=== PATIENT | female | born 2000 ===

== ENCOUNTER 2020-09-11 18:27 | Inpatient (IN) | payer BC ==
[2020-09-11] MEDS ORDERED: Tranexamic Acid 1,000 MG in Sodium Chloride 0.9% 100 ML IV PRN (21:12)
[2020-09-11] MEDS ORDERED: Nalbuphine 10 MG/1 ML Vial IVPUSH PRN (21:12)
[2020-09-11] MEDS ORDERED: Sodium Chloride 0.9% 2.5 ML Syringe FLUSH PRN (21:12)
[2020-09-11] MEDS ORDERED: Carboprost Tromethamine 250 MCG/1 ML Amp IM PRN (21:12)
[2020-09-11] MEDS ORDERED: Sodium Chloride 0.9% 10 ML Syringe FLUSH PRN (21:12)
[2020-09-11] MEDS ORDERED: Water For Irrigation,Sterile 1,000 ML Container IRR PRN (21:12)
[2020-09-11] MEDS ORDERED: Lidocaine 1% 50 ML MDV INJECT PRN (21:12)
[2020-09-11] MEDS ORDERED: Misoprostol 200 MCG Tab PO PRN (21:12)
[2020-09-11] MEDS ORDERED: Methylergonovine 0.2 MG/1 ML Amp IM PRN (21:12)
[2020-09-11] MEDS ORDERED: Sodium Chloride 0.9% 10 ML SDV IV PRN (21:12)
[2020-09-11] MEDS ORDERED: Oxytocin/0.9 % Sodium Chloride 30 UNIT/500 ML BAG IV SCH ×2 (21:15→21:30)
[2020-09-11] MEDS ORDERED: Terbutaline 1 MG/ML SDV SUBCUT PRN (21:17)
[2020-09-11] MEDS ORDERED: Misoprostol 50 MCG (1/2 of 100 MCG) Tab PO ONE (21:21)
[2020-09-11 22:17] LABS: BLOOD UREA NITROGEN,BUN 10 mg/dL (7.0-18.0); CARBON DIOXIDE,CO2 20.8 mmol/L (21.0-32.0); CHLORIDE,CL 104 mmol/L (98-107); GLUCOSE RANDOM 72 mg/dL (74-106); POTASSIUM,K 3.9 mmol/L (3.5-5.1); SODIUM,NA 137 mmol/L (136-145)
[2020-09-12] MEDS: Butorphanol 1 MG/ML SDV IVPUSH PRN ×2 (00:16→02:33)
[2020-09-12] MEDS: Lactated Ringers 1,000 ML IV SCH ×4 (04:22→14:17)
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
[2020-09-12] MEDS ORDERED: fentaNYL 100 MCG/2 ML SDV ONE ×2 (06:32→15:10)
[2020-09-12] MEDS ORDERED: Ropivacaine HCl/PF 100 ML ONE ×2 (06:32→15:10)
--- NOTE | 2020-09-12 06:58 | PCM.SN.2 ---
- Free Text/Narrative Note: Anesthesia time [id number] VIVIANE procedure note 0610- Bedside with patient and S.O. Discussed risks, benefits, alternatives, and procedure for epidural. All questions answered and concerns addressed. H & P completed, labs reviewed. 0615- Consent signed with RN witness. 0622-Sitting position. ASA monitors on. See RN EMR charting for VS throughout. Time-out completed. 0623- Hat for provider and pt, sterile gloves, Sterile prep. with chlorhexidine, sterile plastic drape. 0625- Lido 1% for localization 0626- First attempt successful at L 3-4 level, [place] with saline at 7 cm. No paresthesias. Catheter threaded without resistance to 11cm. 0626- Negative to aspiration for both heme and CSF. Negative test dose (3ml 1. 5%lido with 1:200,000 epi.). 0643- Remains negative to aspiration. Clinician bolus of remaining 2ml 1.5% lido with epi, and 6ml 0.2% ropiv. c/ 2 mcg/ml fentanyl. Epidural infusion started (0.2% ropivicaine c/ 2 mcg/ml fentanyl) at 8ml/hr with DATABASE ADMIN option of 4ml every 10 min with an hourly max. of 36ml. Pt educated regarding DATABASE ADMIN use. 0658- pt reassessed. VSS. T9 level achieved. Pt reports satisfactory pain control.
--- NOTE | 2020-09-12 15:27 | PCM.PRNOTE ---
- Free Text/Narrative Note: Anes Note Epidural infusion completed. A new bag of 100 cc 0.2% ropivicaine wit 1 mcg cc fentanyl was placed. Rate is 8 cc hr with 6 cc q 20 min prn bolus. Patient reports excellent analgesia. Time with patient [id number] Lusi Vences CRNA
[2020-09-12] MEDS ORDERED: Acetaminophen 500 MG Tab PO PRN ×2 (16:50)
[2020-09-12] MEDS ORDERED: Ibuprofen 800 MG Tab PO PRN (16:50)
[2020-09-12] MEDS ORDERED: Docusate Sodium 100 MG Cap PO PRN (16:50)
[2020-09-12] MEDS ORDERED: Benzocaine/Menthol 20%-0.5% Spray 78 GM Cannister TOP PRN (16:50)
[2020-09-12] MEDS ORDERED: Witch Hazel Medicated Pads 40/Jar TOP PRN (16:50)
[2020-09-12] MEDS ORDERED: Bisacodyl 10 MG Supp RECTAL PRN (16:50)
[2020-09-12] MEDS ORDERED: oxyCODONE 5 MG Tab PO PRN (16:50)
[2020-09-12] MEDS ORDERED: Ibuprofen 400 MG Tab PO PRN (16:50)
[2020-09-12] MEDS ORDERED: Lanolin 100% Cream 7 GM Tube TOP PRN (16:50)
--- NOTE | 2020-09-13 07:05 | PCM48HPAN ---
Post Anesthesia Note - EVALUATION WITHIN 48HRS OF ANESTHETIC Vital Signs in Normal Range: Yes Patient Participated in Evaluation: Yes Respiratory Function Stable: Yes Airway Patent: Yes Cardiovascular Function Stable: Yes Hydration Status Stable: Yes Pain Control Satisfactory: Yes Nausea and Vomiting Control Satisfactory: Yes Mental Status Recovered: Yes Vital Signs: Last Vital Signs Temp 36.1 C 09/12/20 21:00 Pulse 79 09/12/20 21:00 Resp 19 09/12/20 21:00 BP 138/86 09/12/20 21:00 Pulse Ox 97 09/12/20 21:00
--- NOTE | 2020-09-13 08:46 | PCM.PNPP ---
- General Info Date of Service: 09/13/20 Functional Status: Reports: Pain Controlled, Tolerating Diet, Ambulating, Urinating - Review of Systems General: Reports: No Symptoms HEENT: Reports: No Symptoms Pulmonary: Reports: No Symptoms Cardiovascular: Reports: No Symptoms Gastrointestinal: Reports: No Symptoms Genitourinary: Reports: No Symptoms Musculoskeletal: Reports: No Symptoms Skin: Reports: No Symptoms Neurological: Reports: No Symptoms Psychiatric: Reports: No Symptoms - Patient Data Vital Signs - Most Recent: Last Vital Signs Temp 35.9 C L 09/13/20 07:54 Pulse 70 09/13/20 07:54 Resp 18 09/13/20 07:54 BP 119/83 09/13/20 07:54 Pulse Ox 97 09/13/20 07:54 Weight - Most Recent: 231 lb Lab Results - Last 24 Hours: Laboratory Results - last 24 hr 09/12/20 09/12/20 09/13/20 Range/Units 16:14 16:14 05:42 Hgb 9.5 L (12.0-16.0) g/dL Hct 29.3 L (36.0-46.0) % Cord ABG pH 7.410 H (7.18-7.38) Cord ABG Base Excess -5 (-10--2) Cord VBG pH 7.326 (7.25-7.45) Cord VBG Base Excess -5 (-10--2) Med Orders - Current: Current Medications Acetaminophen (Acetaminophen 500 Mg Tab) 500 mg PO Q4H PRN PRN Reason: Pain Acetaminophen (Acetaminophen 500 Mg Tab) 1,000 mg PO Q4H PRN PRN Reason: Pain Benzocaine/Menthol (Benzocaine/Menthol 20%-0.5% [place] 78 Gm Cannister) 78 gm TOP ASDIRECTED PRN PRN Reason: Perineal Comfort Measure Last Admin: 09/12/20 20:49 Dose: 78 gm Documented by: Bisacodyl (Bisacodyl 10 Mg Supp) 10 mg RECTAL ONETIME PRN PRN Reason: Constipation Docusate Sodium (Docusate Sodium 100 Mg Cap) 100 mg PO BID PRN PRN Reason: Constipation Emollient Ointment (Lanolin 100% Cream 7 Gm Tube) 0 gm TOP ASDIRECTED PRN PRN Reason: Sore Nipples Oxytocin/Sodium Chloride (Oxytocin 30 Unit/500 Ml-Ns) 30 unit in 500 mls @ 2 mls/hr IV TITRATE [place]EL[place]; Protocol Last Titration: 09/12/20 13:25 Dose: 4 munits/min, 4 mls/hr Documented by: Ibuprofen (Ibuprofen 400 Mg Tab) 400 mg PO Q4H PRN PRN Reason: Pain Ibuprofen (Ibuprofen 800 Mg Tab) 800 mg PO Q6H PRN PRN Reason: Pain Oxycodone HCl (Oxycodone 5 Mg Tab) 5 mg PO Q2H PRN PRN Reason: Pain Sodium Chloride (Sodium Chloride 0.9% 10 Ml Syringe) 10 ml FLUSH ASDIRECTED PRN PRN Reason: Keep Vein Open Sodium Chloride (Sodium Chloride 0.9% 2.5 Ml Syringe) 2.5 ml FLUSH ASDIRECTED P RN PRN Reason: Keep Vein Open Sodium Chloride (Sodium Chloride 0.9% 10 Ml Sdv) 10 ml IV ASDIRECTED PRN PRN Reason: IV Use Terbutaline Sulfate (Terbutaline 1 Mg/Ml Sdv) 0.25 mg SUBCUT ASDIRECTED PRN PRN Reason: Tacysystole Witch Venita (Witch Venita Medicated Pads 40/Jar) 1 pad TOP ASDIRECTED PRN PRN Reason: comfort care Last Admin: 09/12/20 20:50 Dose: 1 pad Documented by: Discontinued Medications Butorphanol Tartrate (Butorphanol 1 Mg/Ml Sdv) 1 mg IVPUSH Q1H PRN PRN Reason: Pain Last Admin: 09/12/20 02:33 Dose: 1 mg Documented by: Carboprost Tromethamine (Carboprost Tromethamine 250 Mcg/1 Ml Amp) 250 mcg IM ASDIRECTED PRN PRN Reason: Post Hemorrhage Fentanyl (Fentanyl 100 Mcg/2 Ml Sdv) Confirm Administered Dose 200 mcg .ROUTE .STK-MED ONE Stop: 09/12/20 06:33 Fentanyl (Fentanyl 100 Mcg/2 Ml Sdv) Confirm Administered Dose 100 mcg .ROUTE .STK-MED ONE Stop: 09/12/20 15:11 Lactated Ringer's (Ringers, Lactated) 1,000 mls @ 150 mls/hr IV ASDIRECTED CANELO Last Admin: 09/12/20 14:17 Dose: 150 mls/hr Documented by: Oxytocin/Sodium Chloride (Oxytocin 30 Unit/500 Ml-Ns) 30 unit in 500 mls @ 500 mls/hr IV TITRATE CANELO Tranexamic Acid 1,000 mg/ (Sodium Chloride) 110 mls @ 660 mls/hr IV ONETIME PRN PRN Reason: Bleeding Ropivacaine (Naropin 0.2%) Confirm Administered Dose 100 mls @ as directed .ROUTE .STK-MED ONE Stop: 09/12/20 06:33 Ropivacaine (Naropin 0.2%) Confirm Administered Dose 100 mls @ as directed .ROUTE .STK-MED ONE Stop: 09/12/20 15:11 Lidocaine HCl (Lidocaine 1% 50 Ml Mdv) 50 ml INJECT ONETIME PRN PRN Reason: Laceration repair Methylergonovine Maleate (Methylergonovine 0.2 Mg/1 Ml Amp) 0.2 mg IM ASDIRECTED PRN PRN Reason: Post Hemorrhage Misoprostol (Misoprostol 200 Mcg Tab) 200 mcg PO ONETIME PRN PRN Reason: Post Hemorrhage Misoprostol (Misoprostol 50 Mcg (1/2 Of 100 Mcg) Tab) 50 mcg PO ONETIME ONE Stop: 09/11/20 21:22 Last Admin: 09/11/20 21:47 Dose: 50 mcg Documented by: Nalbuphine HCl (Nalbuphine 10 Mg/1 Ml Vial) 10 mg IVPUSH Q1H PRN PRN Reason: Pain (severe 7-10) Sterile Water (Water For Irrigation,Sterile 1,000 Ml Container) 1,000 ml IRR ASDIRECTED PRN PRN Reason: delivery - Interaction Disposition, : at Bedside Interaction: Holding Infant Feeding: Breastfed Infant; Nursed Well Support Person: Significant Other - Recovery Exam Fundal Tone: Firm Fundal Level: At Umbilicus Fundal Placement: Midline Lochia Amount: Scant Lochia Color: Rubra/Red Perineum Description: Intact, Minimal Bruising/Swelling Bladder Status: Voiding - Exam General: Alert, Oriented, Cooperative, No Acute Distress HEENT: Pupils Equal, Pupils Reactive Neck: Supple, Trachea Midline, No JVD Lungs: Normal Respiratory Effort GI/Abdominal Exam: Soft, Non-Tender, No Distention Extremities: Normal Inspection, Normal Range of Motion, Non-Tender, No Pedal Edema Skin: Warm, Dry, Intact Neurological: No New Focal Deficit Psy/Mental Status: Alert, Normal Affect, Normal Mood - Problem List Review Problem List Initiated/Reviewed/Updated: Yes - My Orders Last 24 Hours: My Active Orders 09/12/20 16:50 Patient Status [ADT] Routine May Shower [RC] ASDIRECTED Up ad Courtney [RC] ASDIRECTED Vital Signs [RC] PER UNIT ROUTINE Acetaminophen [Tylenol Extra Strength] 1,000 mg PO Q4H PRN Acetaminophen [Tylenol Extra Strength] 500 mg PO Q4H PRN Benzocaine/Menthol [Dermoplast Pain Relief 20%-0.5% [place]] 78 gm TOP ASDIRECTED PRN Docusate Sodium [Colace] 100 mg PO BID PRN Ibuprofen [Motrin] 400 mg PO Q4H PRN Ibuprofen [Motrin] 800 mg PO Q6H PRN Lanolin [Lansinoh HPA] See Dose Instructions TOP ASDIRECTED PRN bisacodyL [Dulcolax] 10 mg RECTAL ONETIME PRN oxyCODONE 5 mg PO Q2H PRN witch Venita [Tucks] 1 pad TOP ASDIRECTED PRN Assess Lochia [WOMSER] Per Unit Routine Assess Uterine Involution [WOMSER] Per Unit Routine Peripheral IV Discontinue [OM.PC] Routine 09/12/20 16:51 Cooling Warming Measures [RC] ASDIRECTED Ice Therapy [OM.PC] Per Unit Routine Perineal Care [OM.PC] Per Unit Routine Sitz Bath [OM.PC] Per Unit Routine 09/13/20 08:40 Ready for Discharge [RC] PER UNIT ROUTINE - Assessment Assessment:: 20yo PPD1 s/p , complicated by gestational HTN, stable and recovering well. - Plan Plan:: BP has been normotensive , no s/s of preeclampsia ambulating and tolerating PO Hgb 9.5, bleeding light, will start iron Stable for discharge home, reviewed care instructions
--- NOTE | 2020-09-13 08:52 | OR ---
SURGEON: Mario Santiago MD DATE OF PROCEDURE: 09/12/2020 INDICATION FOR PROCEDURE: A 20-year-old G1, P0, at 39 weeks and 5 days, presenting with premature rupture of membranes. The patient had a gush of clear fluid and which was confirmed to be rupture of membranes with amniosure. She was 1 cm dilated and not actively lucila; therefore, induction of labor was started with oral Cytotec. She had an otherwise uncomplicated , and she is GBS negative. The patient made progress to 3 cm after Cytotec and was feeling increasing contractions. She received an epidural for pain control. Intermittent variable decels were noted on her tracing; however, it did recover after repositioning. Pitocin was started, she then made progress quickly to 8 cm. The variable and late decels had become more frequent and did not recover with repositioning; therefore, the Pitocin was turned off for about an hour. The tracing improved but she did not make cervical change during that time. Pitocin was again started, and she did become fully dilated with good descent and began pushing with contractions. PREOPERATIVE DIAGNOSES: 1. [place]tt intrauterine at 39 weeks and 5 days. 2. Premature rupture of membranes. POSTOPERATIVE DIAGNOSES: 1. P[place]tt intrauterine at 39 weeks and 5 days. 2. Premature rupture of membranes. PROCEDURES PERFORMED: 1. Normal spontaneous vaginal delivery. 2. Repair of a second-degree laceration. ANESTHESIOLOGIST: Dr. Navarro Meza. ANESTHESIA: Epidural. FINDINGS: A viable male . scores are 8 and 8, and the weight is 7 lbs 10oz. Nuchal cord x1 was noted and reduced after delivery. ESTIMATED BLOOD LOSS: 250 mL. DESCRIPTION OF THE PROCEDURE: The patient pushed with contractions for about 1.5hours with good descent. The head delivered in an occiput anterior position over an intact perineum, restituted LOT. The anterior shoulder delivered easily, followed by the posterior shoulder and the remaining body. A tight nuchal cord was noted and reduced after delivery. The baby was placed on the maternal chest and evaluated by waiting nursery staff. The baby was initially pale and did not cry, but became pink, crying actively and moving all extremities very quickly after stimulation. The umbilical cord was clamped and cut after 60 seconds and no longer pulsating. The umbilical cord gases were collected. The placenta was removed with gentle traction on the umbilical cord. It was examined and found to be intact with a 3-vessel cord. The vagina and perineum were carefully examined. She was noted to have a second-degree laceration that was repaired in the usual fashion using 3-0 Vicryl. Hemostasis was confirmed after the procedure. Fundal massage was performed, uterus was firm and below the umbilicus, and the bleeding was light. The patient tolerated the procedure well and was given care instructions. NANO CASSIDY /[id number] MTDD
--- NOTE | 2020-09-14 08:55 | PCM.PNPP ---
- General Info Date of Service: 09/14/20 Functional Status: Reports: Pain Controlled, Tolerating Diet, Ambulating, Urinating - Review of Systems General: Reports: No Symptoms HEENT: Reports: No Symptoms Pulmonary: Reports: No Symptoms Cardiovascular: Reports: No Symptoms Gastrointestinal: Reports: No Symptoms Genitourinary: Reports: No Symptoms Musculoskeletal: Reports: No Symptoms Skin: Reports: No Symptoms Neurological: Reports: No Symptoms Psychiatric: Reports: No Symptoms - Patient Data Vital Signs - Most Recent: Last Vital Signs Temp 35.9 C L 09/14/20 04:00 Pulse 62 09/14/20 04:00 Resp 16 09/14/20 04:00 BP 112/73 09/14/20 04:00 Pulse Ox 98 09/14/20 04:00 Weight - Most Recent: 231 lb Med Orders - Current: Current Medications Acetaminophen (Acetaminophen 500 Mg Tab) 500 mg PO Q4H PRN PRN Reason: Pain Acetaminophen (Acetaminophen 500 Mg Tab) 1,000 mg PO Q4H PRN PRN Reason: Pain Last Admin: 09/13/20 14:35 Dose: 1,000 mg Documented by: Benzocaine/Menthol (Benzocaine/Menthol 20%-0.5% [place] 78 Gm Cannister) 78 gm TOP ASDIRECTED PRN PRN Reason: Perineal Comfort Measure Last Admin: 09/12/20 20:49 Dose: 78 gm Documented by: Bisacodyl (Bisacodyl 10 Mg Supp) 10 mg RECTAL ONETIME PRN PRN Reason: Constipation Docusate Sodium (Docusate Sodium 100 Mg Cap) 100 mg PO BID PRN PRN Reason: Constipation Emollient Ointment (Lanolin 100% Cream 7 Gm Tube) 0 gm TOP ASDIRECTED PRN PRN Reason: Sore Nipples Last Admin: 09/14/20 00:43 Dose: 1 applic Documented by: Oxytocin/Sodium Chloride (Oxytocin 30 Unit/500 Ml-Ns) 30 unit in 500 mls @ 2 mls/hr IV TITRATE CANELO; Protocol Last Titration: 09/12/20 13:25 Dose: 4 munits/min, 4 mls/hr Documented by: Ibuprofen (Ibuprofen 400 Mg Tab) 400 mg PO Q4H PRN PRN Reason: Pain Ibuprofen (Ibuprofen 800 Mg Tab) 800 mg PO Q6H PRN PRN Reason: Pain Oxycodone HCl (Oxycodone 5 Mg Tab) 5 mg PO Q2H PRN PRN Reason: Pain Sodium Chloride (Sodium Chloride 0.9% 10 Ml Syringe) 10 ml FLUSH ASDIRECTED PRN PRN Reason: Keep Vein Open Sodium Chloride (Sodium Chloride 0.9% 2.5 Ml Syringe) 2.5 ml FLUSH ASDIRECTED PRN PRN Reason: Keep Vein Open Sodium Chloride (Sodium Chloride 0.9% 10 Ml Sdv) 10 ml IV ASDIRECTED PRN PRN Reason: IV Use Terbutaline Sulfate (Terbutaline 1 Mg/Ml Sdv) 0.25 mg SUBCUT ASDIRECTED PRN PRN Reason: Tacysystole Witch Opal (Witch Opal Medicated Pads 40/Jar) 1 pad TOP ASDIRECTED PRN PRN Reason: comfort care Last Admin: 09/12/20 20:50 Dose: 1 pad Documented by: Discontinued Medications Butorphanol Tartrate (Butorphanol 1 Mg/Ml Sdv) 1 mg IVPUSH Q1H PRN PRN Reason: Pain Last Admin: 09/12/20 02:33 Dose: 1 mg Documented by: Carboprost Tromethamine (Carboprost Tromethamine 250 Mcg/1 Ml Amp) 250 mcg IM ASDIRECTED PRN PRN Reason: Post Hemorrhage Fentanyl (Fentanyl 100 Mcg/2 Ml Sdv) Confirm Administered Dose 200 mcg .ROUTE .STK-MED ONE Stop: 09/12/20 06:33 Fentanyl (Fentanyl 100 Mcg/2 Ml Sdv) Confirm Administered Dose 100 mcg .ROUTE .STK-MED ONE Stop: 09/12/20 15:11 Lactated Ringer's (Ringers, Lactated) 1,000 mls @ 150 mls/hr IV ASDIRECTED CANELO Last Admin: 09/12/20 14:17 Dose: 150 mls/hr Documented by: Oxytocin/Sodium Chloride (Oxytocin 30 Unit/500 Ml-Ns) 30 unit in 500 mls @ 500 mls/hr IV TITRATE CANELO Tranexamic Acid 1,000 mg/ (Sodium Chloride) 110 mls @ 660 mls/hr IV ONETIME PRN PRN Reason: Bleeding Ropivacaine (Naropin 0.2%) Confirm Administered Dose 100 mls @ as directed .ROUTE .STK-MED ONE Stop: 09/12/20 06:33 Ropivacaine (Naropin 0.2%) Confirm Administered Dose 100 mls @ as directed .ROUTE .STK-MED ONE Stop: 09/12/20 15:11 Lidocaine HCl (Lidocaine 1% 50 Ml Mdv) 50 ml INJECT ONETIME PRN PRN Reason: Laceration repair Methylergonovine Maleate (Methylergonovine 0.2 Mg/1 Ml Amp) 0.2 mg IM A SDIRECTED PRN PRN Reason: Post Hemorrhage Misoprostol (Misoprostol 200 Mcg Tab) 200 mcg PO ONETIME PRN PRN Reason: Post Hemorrhage Misoprostol (Misoprostol 50 Mcg (1/2 Of 100 Mcg) Tab) 50 mcg PO ONETIME ONE Stop: 09/11/20 21:22 Last Admin: 09/11/20 21:47 Dose: 50 mcg Documented by: Nalbuphine HCl (Nalbuphine 10 Mg/1 Ml Vial) 10 mg IVPUSH Q1H PRN PRN Reason: Pain (severe 7-10) Sterile Water (Water For Irrigation,Sterile 1,000 Ml Container) 1,000 ml IRR ASDIRECTED PRN PRN Reason: delivery - Interaction Infant Disposition, : [place] at Bedside Infant Interaction: Holding Infant Feeding: Breastfed Infant; Nursed Well Support Person: Significant Other - Recovery Exam Fundal Tone: Firm Fundal Level: 1 Fingerbreadths Below Umbilicus Fundal Placement: Midline Lochia Amount: Small Lochia Color: Rubra/Red Perineum Description: Intact, Minimal Bruising/Swelling Episiotomy/Laceration: Approximated Bladder Status: Voiding Urinary Elimination: Voided - Exam General: Alert, Oriented, Cooperative, No Acute Distress HEENT: Pupils Equal, Pupils Reactive, EOMI Neck: Supple, Trachea Midline, No JVD Lungs: Normal Respiratory Effort GI/Abdominal Exam: Soft, Non-Tender, No Distention Extremities: Normal Inspection, Normal Range of Motion, Non-Tender, No Pedal Edema Skin: Warm, Dry, Intact Neurological: No New Focal Deficit Psy/Mental Status: Alert, Normal Affect, Normal Mood - Problem List Review Problem List Initiated/Reviewed/Updated: Yes - My Orders Last 24 Hours: My Active Orders 09/13/20 Lunch Regular Diet [DIET] 09/14/20 08:40 Ready for Discharge [RC] PER UNIT ROUTINE - Assessment Assessment:: 20yo PPD2 s/p , complicated by gestational HTN, stable and recovering well. - Plan Plan:: BP has been normotensive , no s/s of preeclampsia ambulating and tolerating PO Hgb 9.5, bleeding light, will start iron Stable for discharge home, reviewed care instructions
== END 2020-09-14 12:25 | disposition home or self-care (01) | DRG 560 ==
LOC: MW.OBCHECK 18:27 → MW.OB 21:13 → OBSVTOIN 09-12 16:14 → MW.OB 09-12 20:45
PROVIDERS: ADMIT Obstetrics & Gynecology; ATTEND Obstetrics & Gynecology
PROC: 10E0XZZ Delivery of Products of Conception, External Approach (ICD-10-PCS; principal; 2020-09-12)
PROC: 0KQM0ZZ Repair Perineum Muscle, Open Approach (ICD-10-PCS; 2020-09-12)
PROC: 3E0R3BZ Introduction of Anesthetic Agent into Spinal Canal, Percutaneous Approach (ICD-10-PCS; 2020-09-12)
PROC: 00HU33Z Insertion of Infusion Device into Spinal Canal, Percutaneous Approach (ICD-10-PCS; 2020-09-12)
PROC: 3E0P7VZ Introduction of Hormone into Female Reproductive, Via Natural or Artificial Opening (ICD-10-PCS; 2020-09-12)
DX: O42.02 Full-term premature rupture of membranes, onset of labor within 24 hours of rupture (principal); O13.4 Gestational [pregnancy-induced] hypertension without significant proteinuria, complicating childbirth; Z3A.39 39 weeks gestation of pregnancy; Z37.0 Single live birth; O99.214 Obesity complicating childbirth; E66.9 Obesity, unspecified; O70.1 Second degree perineal laceration during delivery; Z20.822 Contact with and (suspected) exposure to COVID-19; O69.1XX0 Labor and delivery complicated by cord around neck, with compression, not applicable or unspecified
CPT/HCPCS: 01967; 36415; 51702; 80053; 82570; 82803; 84112; 84156; 84550; 85014; 85018; 85027; 86592; 86850; 86900; 86901; A9270-GY; J0595; J2590; J2795; J3010; J7120; U0002

== ENCOUNTER 2021-12-31 19:53 | Inpatient (IN) | payer OTHER ==
[2021-12-31] MEDS ORDERED: Sodium Chloride 0.9% 20 ML SDV IV PRN (20:07)
[2021-12-31] MEDS ORDERED: Sodium Chloride 0.9% 10 ML Syringe FLUSH PRN (20:07)
[2021-12-31] MEDS ORDERED: Misoprostol 200 MCG Tab PO PRN (20:07)
[2021-12-31] MEDS ORDERED: Methylergonovine 0.2 MG/1 ML Amp IM PRN (20:07)
[2021-12-31] MEDS ORDERED: Tranexamic Acid 1,000 MG in Sodium Chloride 0.9% 100 ML IV PRN (20:07)
[2021-12-31] MEDS ORDERED: Lidocaine 1% 50 ML MDV INJECT PRN (20:07)
[2021-12-31] MEDS ORDERED: Butorphanol 1 MG/ML SDV IVPUSH PRN (20:07)
[2021-12-31] MEDS ORDERED: Water For Irrigation,Sterile 1,000 ML Container IRR PRN (20:07)
[2021-12-31] MEDS ORDERED: Carboprost Tromethamine 250 MCG/1 ML Amp IM PRN (20:07)
[2021-12-31] MEDS ORDERED: Misoprostol 25 MCG (1/4 of 100 MCG) Tab VAG PRN ×2 (20:07)
[2021-12-31] MEDS ORDERED: Sodium Chloride 0.9% 2.5 ML Syringe FLUSH PRN (20:07)
[2021-12-31] MEDS ORDERED: Terbutaline 1 MG/ML SDV SUBCUT PRN (20:07)
[2021-12-31] MEDS ORDERED: Oxytocin/0.9 % Sodium Chloride 30 UNIT/500 ML BAG IV SCH ×2 (20:15)
[2021-12-31] MEDS ORDERED: Lactated Ringers 1,000 ML IV SCH (20:15)
[2021-12-31] MEDS ORDERED: Ondansetron 4 MG/2 ML SDV IVPUSH PRN (20:42)
[2021-12-31] MEDS ORDERED: Hydrocortisone 1% Crm 30 GM Tube TOP PRN (20:45)
[2022-01-01] MEDS ORDERED: Phenylephrine HCl In 0.9% NaCl 1 MG/10 ML Vial ONE (01:45)
[2022-01-01] MEDS ORDERED: Lidocaine 2% with EPINEPHrine 1:200,000 20 ML SDV ONE (01:46)
[2022-01-01] MEDS ORDERED: ePHEDrine 50 MG/ML SDV IVPUSH PRN ×2 (02:18)
[2022-01-01] MEDS ORDERED: Ropivacaine HCl/PF 400 MG in Premix Bag 1 BAG EPIDUR SCH (02:30)
[2022-01-01] MEDS ORDERED: Phenylephrine HCl In 0.9% NaCl 1 MG/10 ML Vial IVPUSH SCH (02:30)
[2022-01-01] MEDS ORDERED: Witch Hazel Medicated Pads 40/Jar TOP PRN (02:56)
[2022-01-01] MEDS ORDERED: Tranexamic Acid 1,000 MG in Sodium Chloride 0.9% 100 ML IV PRN (02:56)
[2022-01-01] MEDS ORDERED: Methylergonovine 0.2 MG/1 ML Amp IM PRN (02:56)
[2022-01-01] MEDS ORDERED: Docusate Sodium 100 MG Cap PO PRN (02:56)
[2022-01-01] MEDS ORDERED: Lanolin 100% Cream 7 GM Tube TOP PRN (02:56)
[2022-01-01] MEDS ORDERED: Bisacodyl 10 MG Supp RECTAL PRN (02:56)
[2022-01-01] MEDS ORDERED: Acetaminophen 500 MG Tab PO PRN (02:56)
[2022-01-01] MEDS ORDERED: Ibuprofen 400 MG Tab PO PRN (02:56)
[2022-01-01] MEDS ORDERED: Benzocaine/Menthol 20%-0.5% Spray 78 GM Cannister TOP PRN (02:56)
[2022-01-01] MEDS ORDERED: Non-Formulary Medication 1 Each (Pnv No.95/Ferrous Fum/Folic Ac [Prenatal Tablet] 1 EACH T PO SCH (03:00)
[2022-01-01] MEDS: Ibuprofen 800 MG Tab PO PRN ×2 (12:56→19:51)
[2022-01-01] MEDS: Acetaminophen 500 MG Tab PO PRN (14:24)
[2022-01-02] MEDS: Ibuprofen 800 MG Tab PO PRN (03:53)
[2022-01-02] MEDS: Acetaminophen 500 MG Tab PO PRN (08:30)
== END 2022-01-02 18:30 | disposition home or self-care (01) | DRG 807 ==
LOC: MW.OBCHECK 19:53 → MW.OB 19:53 → MW.OBCHECK 20:10 → MW.OB 20:11 → OBSVTOIN 01-01 02:32 → MW.OB 01-01 06:12
PROVIDERS: ADMIT Obstetrics & Gynecology; ATTEND Obstetrics & Gynecology
PROC: 10E0XZZ Delivery of Products of Conception, External Approach (ICD-10-PCS; principal; 2022-01-01)
PROC: 3E0P7VZ Introduction of Hormone into Female Reproductive, Via Natural or Artificial Opening (ICD-10-PCS; 2022-01-01)
PROC: 3E0R3BZ Introduction of Anesthetic Agent into Spinal Canal, Percutaneous Approach (ICD-10-PCS; 2022-01-01)
PROC: 00HU33Z Insertion of Infusion Device into Spinal Canal, Percutaneous Approach (ICD-10-PCS; 2022-01-01)
PROC: 10907ZC Drainage of Amniotic Fluid, Therapeutic from Products of Conception, Via Natural or Artificial Opening (ICD-10-PCS; 2022-01-01)
DX: O99.214 Obesity complicating childbirth (principal); Z37.0 Single live birth; O99.353 Diseases of the nervous system complicating pregnancy, third trimester; G43.909 Migraine, unspecified, not intractable, without status migrainosus; Z3A.39 39 weeks gestation of pregnancy; Z20.822 Contact with and (suspected) exposure to COVID-19
CPT/HCPCS: 01967; 36415; 59025; 59409; 82803; 85014; 85018; 85027; 86592; 86850; 86900; 86901; A9270-GY; J0595; J2590; J2795; J7120; U0002